=== PATIENT | male | born 1955 | race Caucasian/White ===

== ENCOUNTER → 2017-09-20 | Outpatient (CLI) | payer BC ==
--- NOTE | 2017-09-20 11:02 | XR ---
EXAMINATION TYPE: XR abdomen 1V DATE OF EXAM: 09/20/2017 COMPARISON: NONE HISTORY: 62-year-old male right-sided kidney stones FINDINGS: Lung bases are clear. Supine imaging limited for assessment of free air. Nonobstructive bowel gas pattern. Mild overall stool burden. There is a 5 mm right upper to mid abdominal calcification which is nonspecific. IMPRESSION: Possible 5 mm right renal calculus.
== END | disposition home or self-care (01) ==
LOC: RADXRMAIN 08:20
PROVIDERS: ATTEND Urology
DX: N20.0 Calculus of kidney (principal)
CPT/HCPCS: 74018

== ENCOUNTER → 2018-11-08 | Outpatient (CLI) | payer BC | LOC: LABWHC1 08:56 | PROVIDERS: ATTEND Urology | DX: E29.1 Testicular hypofunction (principal) | CPT/HCPCS: 36415; 84402; 84403 ==

== ENCOUNTER → 2019-04-17 | Outpatient (CLI) | payer BC | END | disposition home or self-care (01) | LOC: LABWHC1 07:48 | PROVIDERS: ATTEND Urology | DX: E29.1 Testicular hypofunction (principal); R35.1 Nocturia | CPT/HCPCS: 36415; 84153; 84402; 84403 ==

== ENCOUNTER → 2020-09-03 | Outpatient (CLI) | payer BC ==
--- NOTE | 2020-09-03 13:00 | CT ---
EXAMINATION TYPE: CT urogram wo/w con DATE OF EXAM: 09/03/2020 COMPARISON: None HISTORY: 65-year-old male R31.0, Hematuria TECHNIQUE: Contiguous axial scanning of the abdomen and pelvis performed without and with IV Contrast , patient injected with 100 mL of Isovue 300. Delayed images through the kidneys and bladder were obt ained. Coronal/sagittal reconstructions performed. 3-D reconstructions generated on a dedicated works tation. CT DLP: 2635.10 mGycm Automated exposure control for dose reduction was used. FINDINGS: Heart normal size without pericardial effusion. Lung bases clear without pleural effusion. No focal liver lesion or biliary ductal dilatation. Portal venous system is patent. Gallbladder, adrenal glands, spleen, and pancreas appear within normal limits. Kidneys show no nephrolithiasis or significant obstructive uropathy. No hydronephrosis. However, ther e does appear to be a 7 mm calcification in the distal right ureter, axial series 5 image 70. No abnormal renal mass. No abnormal filling defect within the renal collecting system. Segments of the distal third ureters remain unopacified but show no abnormal thickening. The remainin g upper and mid ureters appear satisfactory. No dilated small bowel, free fluid, or free air. No mesenteric or retroperitoneal lymphadenopathy. Mild stool burden. Mildly redundant sigmoid colon. No pericolic inflammatory change. Bladder prominently urine distended. Prostate gland is enlarged at 5.4 cm wide. No abnormal fluid col lection the pelvis or pelvic lymphadenopathy. Bones: Mild degenerative change of the hips. Mild degenerative disc disease lower lumbar spine. Facet arthropathy lower lumbar spine. Fatty matrix hemangioma within the T9 and L2 vertebral bodies. Also the L4 vertebral body. IMPRESSION: 1. THERE APPEARS TO BE A 7 MM CALCULUS IN THE DISTAL RIGHT URETER. THIS DOES NOT SEEM TO BE CONTRIBUT ING TO ANY SIGNIFICANT OBSTRUCTIVE UROPATHY. 2. NO SUSPICIOUS RENAL MASS. SEGMENTS OF BOTH DISTAL URETERS REMAIN NONOPACIFIED LIMITING THEIR EVALU ATION BUT SHOW NO KERRY ABNORMAL WALL THICKENING. 3. PROSTATOMEGALY AT 5.4 CM WIDE.
== END ==
LOC: RADCTMAIN 10:28
PROVIDERS: ATTEND Urology
DX: N40.0 Benign prostatic hyperplasia without lower urinary tract symptoms (principal); N20.1 Calculus of ureter
CPT/HCPCS: 74178; 74400; Q9967

== ENCOUNTER → 2020-09-17 | Outpatient (CLI) | payer BC ==
[2020-09-17 11:49] LABS: Calcium 10.7 mg/dL (8.4-10.2)
[2020-09-17 12:05] LABS: Basophils # (A) 0.1 k/uL (0-0.2); Basophils % (A) 1 %; Eosinophils # (A) 0.1 k/uL (0-0.7); Eosinophils % (A) 1 %; HCT 49.6 % (39.0-53.0); HGB 16.8 gm/dL (13.0-17.5); Lymphocytes # (A) 1.5 k/uL (1.0-4.8); Lymphocytes % (A) 25 %; MCH 29.7 pg (25.0-35.0); MCHC 33.8 g/dL (31.0-37.0); MCV 87.7 fL (80.0-100.0); Mean Platelet Volume 8.4; Monocytes # (A) 0.4 k/uL (0-1.0); Monocytes % (A) 6 %; Neutrophils # (A) 3.7 k/uL (1.3-7.7); Neutrophils % (A) 65 %; Platelet Count 230 k/uL (150-450); RBC 5.66 m/uL (4.30-5.90); WBC 5.8 k/uL (3.8-10.6)
== END | disposition home or self-care (01) ==
LOC: LABPAT 10:11
PROVIDERS: ATTEND Urology
DX: Z01.812 Encounter for preprocedural laboratory examination (principal); N20.1 Calculus of ureter
CPT/HCPCS: 36415; 80048; 85025

== ENCOUNTER 2020-09-24 05:55 | Day surgery (SDC) | payer BC ==
[2020-09-22 12:46] VITALS: BMI 30.4
--- NOTE | 2020-09-22 15:24 | P.GSHP ---
History of Present Illness H&P Date: 09/18/20 Chief Complaint: Gross hematuria The patient is a 65-year-old white male with a three-month history of intermittent gross hematuria. Computed tomography scan shows a 7 mm right distal ureteral calculus. He has a history of kidney stones. Alternative treatment options were reviewed, including observation, ureteroscopy with laser lithotripsy, and extracorporal shockwave lithotripsy (ESWL). After weighing the pros and cons of each option, he has elected to undergo ureteroscopy with laser lithotripsy. - Genitourinary (Male) Genitourinary: Reports hematuria, Denies flank pain - Psychiatric Psychiatric: Reports anxiety Medications and Allergies Home Medications Medication Instructions Recorded Confirmed Type Allopurinol [Zyloprim] 200 mg PO DAILY 09/22/20 09/22/20 History Daytrana Patch 30 mg TRANSDERM DAILY 09/22/20 09/22/20 History Esomeprazole Magnesium [NexIUM 20 mg PO DAILY 09/22/20 09/22/20 History 24Hr] FLUoxetine HCL [PROzac] 20 mg PO DAILY 09/22/20 09/22/20 History Fluticasone Nasal [place] [Flonase 2 spr EA NOSTRIL DAILY 09/22/20 09/22/20 History Nasal [place]] Gabapentin [Neurontin] 300 mg PO HS 09/22/20 09/22/20 History Gabapentin [Neurontin] 600 mg PO BID 09/22/20 09/22/20 History Pravastatin Sodium [Pravachol] 20 mg PO DAILY 09/22/20 09/22/20 History Testosterone [Testosterone 1.62% 3 pump TRANSDERM DAILY 09/22/20 09/22/20 History (1250 mg)] Xyrem 4.5 mg PO HS 09/22/20 09/22/20 History buPROPion HCL [Wellbutrin XL] 300 mg PO DAILY 09/22/20 09/22/20 History Allergies Allergy/AdvReac Type Severity Reaction Status Date / Time No Known Allergies Allergy Verified 09/22/20 12:16 Surgical - Exam - General well developed, well nourished, no distress - Respiratory normal respiratory effort, clear to auscultation - Cardiovascular Rhythm: regular Abnormal Heart Sounds: no systolic murmur, no diastolic murmur, no rub, no S3 Gallop, no S4 Gallop, no click, no other - Abdomen Abdomen: soft, non tender, no guarding, no rigid, no rebound - Genitourinary testicles non-tender - Rectum Rectum: normal sphincter tone, no masses - Psychiatric oriented to time, oriented to person, oriented to place, speech is normal, memory intact Results - Imaging CT scan - abdomen: report reviewed, image reviewed Assessment and Plan (1) Calculus of ureter Status: Acute Code(s): N20.1 - CALCULUS OF URETER SNOMED Code(s): 03506739 Plan: Cystoscopy, right ureteroscopy with Holmium laser lithotripsy, possible stone basketing, possible right ureteral stent insertion. The procedure has been reviewed in detail with the patient and his . They have been made aware of potential risks, which include anesthesia, bleeding, infection, inability to successfully remove the calculus, and ureteral injury.
[2020-09-24] MEDS ORDERED: ONDANSETRON 4 MG/2 ML VIAL ONE (06:47)
[2020-09-24] MEDS ORDERED: LACTATED RINGERS 1,000 ML IV ONE ×2 (06:55→08:05)
[2020-09-24] MEDS ORDERED: ONDANSETRON 4 MG/2 ML VIAL IVP ONE (06:56)
[2020-09-24] MEDS ORDERED: MIDAZOLAM 2 MG/2 ML VIAL IVP ONE (06:56)
[2020-09-24] MEDS ORDERED: DEXAMETHASONE SOD PHOSPHATE 4 MG/ML 1 ML VIAL IVP ONE (06:56)
[2020-09-24] MEDS ORDERED: fentaNYL (PF) 50 MCG/ML 2 ML AMP ONE (07:28)
[2020-09-24] MEDS ORDERED: MIDAZOLAM 2 MG/2 ML VIAL ONE (07:28)
[2020-09-24] MEDS ORDERED: PROPOFOL 10 MG/ML 20 ML VIAL IV ONE (07:28)
[2020-09-24] MEDS ORDERED: LIDOCAINE 1% INJ 10MG/ML (20 ML MDV) ONE (07:28)
[2020-09-24] MEDS ORDERED: SUCCINYLCHOLINE CHLORIDE 100 MG/5 ML SYR IV ONE (07:28)
[2020-09-24] MEDS ORDERED: IOPAMIDOL-370 50ML BTL MISCELLANE ONE (08:04)
--- NOTE | 2020-09-24 08:18 | XR ---
EXAMINATION TYPE: XR KUB portable DATE OF EXAM: 09/24/2020 CLINICAL DATA: 65-year-old male preoperative right-sided kidney stones, [facility] COMPARISON: CT 09/03/2020 FINDINGS: Moderate stool in the right-sided the abdomen. Mild degenerative change at both hips. Nonob structive bowel gas pattern. Bowel content partially obscures the renal shadows, particularly on the right. An 8 x 5 mm calcification projects in the right side of the pelvis in keeping with the distal ureteral calculus seen on recent CT. IMPRESSION: 8 x 5 mm distal right ureteral calculus redemonstrated. Moderate stool in the right side of the abdom en.
--- NOTE | 2020-09-24 08:48 | P.OP ---
Date of Procedure: 09/24/20 Preoperative Diagnosis: Right ureteral calculus Postoperative Diagnosis: Same Procedure(s) Performed: Cystoscopy, right retrograde pyelogram, right ureteroscopy with Holmium laser lithotripsy and stone basketing Anesthesia: FLETCHER Surgeon: Maurizio Zamarripa Estimated Blood Loss (ml): 5 IV fluids (ml): 800 Pathology: other (Calculus fragments, sent for chemical analysis) Condition: stable Disposition: PACU Indications for Procedure: The patient is a 65-year-old white male with a three-month history of intermittent gross hematuria. Computed tomography scan shows a 7 mm right distal ureteral calculus. He has a history of kidney stones. Alternative treatment options were reviewed, including observation, ureteroscopy with laser lithotripsy, and extracorporal shockwave lithotripsy (ESWL). After weighing the pros and cons of each option, he has elected to undergo ureteroscopy with laser lithotripsy. Operative Findings: Right distal ureteral calculus, fragmented and removed completely. Description of Procedure: The patient was taken to the operating room and placed in the dorsolithotomy position, with legs supported in Adam stirrups. The external genitalia was prepped and draped sterilely. The 30 lens was used to introduce the 21-[place] Cardoza cystoscopic sheath through the urethra and into the bladder under direct vision. The prostatic urethra showed evidence of visual occlusion with a trilobar configuration. The bladder was examined in its entirety. Both ureteral orifices were normal anatomic location and configuration. No tumors or foreign bodies were seen. Using a 10-[place] cone-tipped catheter, a right retrograde pyelogram was performed. This confirmed the presence of a calculus several centimeters cephalad to the ureterovesical junction. The cystoscope was removed, and the Cardoza semirigid ureteroscope was advanced into the bladder. The right ureteral orifice was cannulated, but the ureteroscope could not be advanced due to narrowing of the intramural ureter. A 0.035 inch Glidewire was passed through the ureteroscope. With some manipulation, the Glidewire was advanced beyond the calculus and up to the right renal pelvis. A 15-[place] balloon dilating catheter was then used to dilate the ureter distal to the calculus. The balloon dilating catheter was removed, and the semirigid ureteroscope was again passed into the bladder under direct vision. The right ureteral orifice was cannulated, and the ureteroscope was easily advanced up to the calculus. The 272 micron Holmium laser probe was passed through the ureteroscope, and lithotripsy was performed utilizing a dusting mode. There were several residual fragments, which were removed using a 1.9-[place] nitinol basket. Inspection of the ureter at this time showed no residual calculi. Mild edema of the distal ureter was noted. There was no evidence of ureteral perforation. The ureteroscope was removed, and the cystoscope was advanced into the bladder. The calculus fragments were removed and sent for chemical analysis. The bladder was emptied and the cystoscope removed. The patient tolerated the procedure well and was taken to the recovery room in stable condition. [facility] [place]: Procedure Acuity: Elective Stone Size and Location: 7 mm, right distal ureter Ureteral Dilation: Balloon Dilation Ureteral Access Sheath Used: No Stone Sent for Analysis: Yes All Stones/Fragments Were Removed with a Basket: Yes Complications: No Preoperative Antibiotics Given: Yes Stent Placed: No Discharge Medications: None
[2020-09-24 08:56] VITALS: TEMP 97.1
--- NOTE | 2020-09-24 09:16 | FL ---
EXAMINATION TYPE: FL urography retrograde DATE OF EXAM: 09/24/2020 FLUOROSCOPY Fluoroscopy time of 1 minute 3 seconds was used during urologic procedure with cystoscopy and lithotr ipsy, stone removal. 3 image/s document/s the procedure.
[2020-09-24 09:50] VITALS: BP 135/79; PULSE 62; RESP 16
== END 2020-09-24 10:37 | disposition home or self-care (01) ==
LOC: OR 05:55
PROVIDERS: ATTEND Urology
DX: N20.1 Calculus of ureter (principal); N13.5 Crossing vessel and stricture of ureter without hydronephrosis; E78.5 Hyperlipidemia, unspecified; G47.33 Obstructive sleep apnea (adult) (pediatric); F41.9 Anxiety disorder, unspecified; F32.9 Major depressive disorder, single episode, unspecified; Z87.442 Personal history of urinary calculi; Z79.899 Other long term (current) drug therapy; Z79.890 Hormone replacement therapy; Z99.89 Dependence on other enabling machines and devices
CPT/HCPCS: 82365; 74420; 74018; 52353; 52341; C1758; C1769; J2250; J1100; J0690; J2405; J2001; J3010; J0330; J2704; Q9967

== ENCOUNTER 2020-09-24 13:18 | Emergency (ER) | payer BC ==
[2020-09-24 13:23] VITALS: RESP 18; TEMP 97.5
[2020-09-24] MEDS ORDERED: SODIUM CHLORIDE 0.9% 1,000 ML IV STA (13:51)
[2020-09-24] MEDS ORDERED: KETOROLAC 15 MG/ML 1 ML VIAL IVP STA (13:51)
[2020-09-24 14:09] LABS: Basophils % (A) 0 %; Eosinophils % (A) 1 %; HCT 43.7 % (39.0-53.0); Lymphocytes # (A) 0.6 k/uL (1.0-4.8); Lymphocytes % (A) 7 %; MCH 29.8 pg (25.0-35.0); MCHC 34.4 g/dL (31.0-37.0); MCV 86.4 fL (80.0-100.0); Mean Platelet Volume 8.6; Monocytes # (A) 0.2 k/uL (0-1.0); Monocytes % (A) 2 %; Neutrophils # (A) 7.9 k/uL (1.3-7.7); Neutrophils % (A) 91 %; Platelet Count 209 k/uL (150-450); RBC 5.06 m/uL (4.30-5.90); RDW 12.8 % (11.5-15.5); WBC 8.7 k/uL (3.8-10.6)
[2020-09-24 14:23] LABS: Albumin 4.2 g/dL (3.5-5.0); Calcium 9.4 mg/dL (8.4-10.2); Potassium 4.7 mmol/L (3.5-5.1); Total Bilirubin 0.7 mg/dL (0.2-1.3); Total Protein 6.4 g/dL (6.3-8.2)
--- NOTE | 2020-09-24 14:26 | ED ---
Abdominal Pain HPI - General Chief Complaint: Abdominal Pain Stated Complaint: abd pain Time Seen by Provider: 09/24/20 13:38 Source: patient, EMS Mode of arrival: EMS Limitations: no limitations - History of Present Illness Initial Comments: Patient is a 65-year-old male presenting to the emergency department via EMS of her complaints of severe right-sided flank and abdominal pain that started a few hours prior to arrival. Patient had lithotripsy performed by Dr. Zamarripa this morning and on his way home from the hospital started having severe right flank pain. He did take 2 Tylenol threes which they had in the vehicle however did not improve. Patient continued to have very severe pains at home so the called EMS. Patient was given a total of 100 g of fentanyl as well as 10 mg of morphine in the EMS prior to arrival. He states his pain is still about a 5/10. He does admit to some mild nausea but no vomiting. He states they did contact Dr. Zamarripa who said that he will have some pain over the next 1-2 days and that they do give him Toradol however they were not able to fill the prescription before his pain worsened. He denies any fevers or chills. There are no further complaints at this time. Upon arrival to the ER his vitals are stable. - Related Data Home Medications Medication Instructions Recorded Confirmed Allopurinol [Zyloprim] 200 mg PO DAILY 09/22/20 09/22/20 Daytrana Patch 30 mg TRANSDERM DAILY 09/22/20 09/22/20 Esomeprazole Magnesium [NexIUM 20 mg PO DAILY 09/22/20 09/22/20 24Hr] FLUoxetine HCL [PROzac] 20 mg PO DAILY 09/22/20 09/22/20 Fluticasone Nasal [place] [Flonase 2 spr EA NOSTRIL DAILY 09/22/20 09/22/20 Nasal [place]] Gabapentin [Neurontin] 300 mg PO HS 09/22/20 09/22/20 Gabapentin [Neurontin] 600 mg PO BID 09/22/20 09/22/20 Pravastatin Sodium [Pravachol] 20 mg PO DAILY 09/22/20 09/22/20 Testosterone [Testosterone 1.62% 3 pump TRANSDERM DAILY 09/22/20 09/22/20 (1250 mg)] Xyrem 4.5 mg PO HS 09/22/20 09/22/20 buPROPion HCL [Wellbutrin XL] 300 mg PO DAILY 09/22/20 09/22/20 Allergies Allergy/AdvReac Type Severity Reaction Status Date / Time No Known Allergies Allergy Verified 09/24/20 06:29 Review of Systems ROS Statement: Those systems with pertinent positive or pertinent negative responses have been documented in the HPI. ROS Other: All systems not noted in ROS Statement are negative. Past Medical History Past Medical History: Sleep Apnea/CPAP/BIPAP Additional Past Medical History / Comment(s): narcolepsy History of Any Multi-Drug Resistant Organisms: None Reported Additional Past Surgical History / Comment(s): lipotrypsy Past Psychological History: Depression Smoking Status: Never smoker Past Alcohol Use History: None Reported Past Drug Use History: None Reported General Exam - General Exam Comments Initial Comments: GENERAL: Patient is well-developed and well-nourished. Patient is nontoxic and in moderate distress. HEAD: Atraumatic, normocephalic. EYES: Pupils equal round and reactive to light, extraocular movements intact, sclera anicteric, conjunctiva are normal. Eyelids were unremarkable. ENT: TMs normal, nares patent, oropharynx clear without exudates. Moist mucous membranes. NECK: Normal range of motion, supple without lymphadenopathy or JVD. LUNGS: Unlabored respirations. Breath sounds clear to auscultation bilaterally and equal. No wheezes rales or rhonchi. HEART: Regular rate and rhythm without murmurs, rubs or gallops. ABDOMEN: Soft, tender in the right side of the abdomen, right flank pain, normoactive bowel sounds. No guarding, no rebound. No masses appreciated. : Deferred MUSCULOSKELETAL: Normal extremities with adequate strength and normal range of motion, no pitting or edema. No clubbing or cyanosis. NEUROLOGICAL: Patient is alert and oriented x 3. Motor and sensory are also intact. Cranial nerves II through XII grossly intact. Symmetrical smile. Normal speech, normal gait. PSYCH: Normal mood, normal affect. SKIN: Warm, Dry, normal turgor, no rashes or lesions noted. Limitations: no limitations Course Vital Signs 09/24/20 09/24/20 13:20 15:37 Temperature 97.5 F L Pulse Rate 76 72 Respiratory 18 18 Rate Blood Pressure 141/95 137/62 O2 Sat by Pulse 98 99 Oximetry Medical Decision Making - Medical Decision Making Patient is a 65-year-old male presenting via EMS for severe pain of the right side of the abdomen, right flank pain after undergoing a lithotripsy this morning with Dr. Zamarripa. Patient received a total of 100 g of fentanyl and 10 mg of morphine the EMS prior to arrival, he continued to have pain 5/10. KUB no longer shows the 8 mm stone in, his labs are unremarkable. Patient was given 30 mg of Toradol here in the ER and his pain has improved immensely. I discussed with patient that he could have continued pain for the next 1-2 days as a smaller stones pass. I recommended continuing his fluids, Zofran for any additional nausea and continue with the Toradol medication that they were prescribed. Patient and patient's are in agreement with this plan of care. He is stable for discharge. Return parameters were discussed with them and they verbalized understanding. Case discussed with Dr. Heard. - Lab Data Result diagrams: 09/24/20 14:01 09/24/20 14:01 Lab Results 09/24/20 09/24/20 09/24/20 Range/Units 14:01 14:01 15:00 WBC 8.7 (3.8-10.6) k/uL RBC 5.06 (4.30-5.90) m/uL Hgb 15.0 (13.0-17.5) gm/dL Hct 43.7 (39.0-53.0) % MCV 86.4 (80.0-100.0) fL MCH 29.8 (25.0-35.0) pg MCHC 34.4 (31.0-37.0) g/dL RDW 12.8 (11.5-15.5) % Plt Count 209 (150-450) k/uL MPV 8.6 Neutrophils % 91 % Lymphocytes % 7 % Monocytes % 2 % Eosinophils % 1 % Basophils % 0 % Neutrophils # 7.9 H (1.3-7.7) k/uL Lymphocytes # 0.6 L (1.0-4.8) k/uL Monocytes # 0.2 (0-1.0) k/uL Eosinophils # 0.0 (0-0.7) k/uL Basophils # 0.0 (0-0.2) k/uL Sodium 139 (137-145) mmol/L Potassium 4.7 (3.5-5.1) mmol/L Chloride 104 (98-107) mmol/L Carbon Dioxide 28 (22-30) mmol/L Anion Gap 7 mmol/L BUN 18 (9-20) mg/dL Creatinine 1.03 (0.66-1.25) mg/dL Est GFR (CKD-EPI)AfAm 89 (>60 ml/min/1.73 sqM) Est GFR (CKD-EPI)NonAf 77 (>60 ml/min/1.73 sqM) Glucose 126 H (74-99) mg/dL Calcium 9.4 (8.4-10.2) mg/dL Total Bilirubin 0.7 (0.2-1.3) mg/dL AST 29 (17-59) U/L ALT 35 (4-49) U/L Alkaline Phosphatase 79 (38-126) U/L Total Protein 6.4 (6.3-8.2) g/dL Albumin 4.2 (3.5-5.0) g/dL Urine Color Yellow Urine Appearance Cloudy (Clear) Urine pH 8.0 (5.0-8.0) Ur Specific [place] 1.009 (1.001-1.035) Urine Protein Trace H (Negative) Urine Glucose (UA) Trace H (Negative) Urine Ketones Negative (Negative) Urine Blood Large H (Negative) Urine Nitrite Negative (Negative) Urine Bilirubin Negative (Negative) Urine Urobilinogen <2.0 (<2.0) mg/dL Ur Leukocyte Esterase Negative (Negative) Urine RBC >182 H (0-5) /hpf Urine WBC 12 H (0-5) /hpf Urine Yeast (Budding) Few H (None) /hpf Disposition Clinical Impression: Calculus of ureter, Right flank pain Disposition: HOME SELF-CARE Condition: Stable Instructions (If sedation given, give patient instructions): Kidney Stones (ED) Additional Instructions: Please return to the Emergency Department if symptoms worsen or any other concerns. Continue with your already prescribed Toradol for pain management. May take Zofran for any additional nausea. Follow up with urology as discussed. Is patient prescribed a controlled substance at d/c from ED?: No Referrals: Ines Philippe MD [Primary Care Provider] - 1-2 days Maurizio Zamarripa MD [STAFF PHYSICIAN] - 1-2 days Time of Disposition: 15:34
--- NOTE | 2020-09-24 14:36 | XR ---
EXAMINATION TYPE: XR KUB DATE OF EXAM: 09/24/2020 Comparison: 09/24/2020, earlier today Clinical History: 65-year-old male recent oh lithotripsy today, increased pain Findings: Lung bases are clear. No evidence for free intraperitoneal air. Nonobstructive bowel gas pattern. Mild stool within the rig ht side of the abdomen. The previously millimeter calcification in the right side of the pelvis is no longer identified. Impression: The previous 8 mm calculus in the right side of the pelvis is no longer visualized.
[2020-09-24 15:14] LABS: Appearance,Urine Cloudy (Clear); Bilirubin,Urine Negative (Negative); Blood,Urine Large (Negative); Budding Yeast,Urine Few /hpf; Color,Urine Yellow; Glucose,Urine (UA) Trace (Negative); Ketones,Urine Negative (Negative); Leukocyte Esterase,Urine Negative (Negative); Nitrite,Urine Negative (Negative); Protein,Urine Trace (Negative); RBC,Urine >182 /hpf (0-5); Specific Gravity,Urine 1.009 (1.001-1.035); Urobilinogen,Urine <2.0 mg/dL (<2.0); WBC,Urine 12 /hpf (0-5)
[2020-09-24] MEDS ORDERED: ONDANSETRON 4 MG ODT STARTER PACK 2 TAB BTL PO STA (15:26)
[2020-09-24 15:39] VITALS: BP 137/62; PULSE 72
== END 2020-09-24 15:37 | disposition home or self-care (01) ==
LOC: EC 13:18
DX: N20.1 Calculus of ureter (principal); G47.30 Sleep apnea, unspecified; F32.9 Major depressive disorder, single episode, unspecified
CPT/HCPCS: 36415; 80053; 85025; 81001; 87086; 74018; 99284; 96374; 96361 ×2; J1885; S0119

== ENCOUNTER → 2020-10-20 | Outpatient (CLI) | payer BC ==
--- NOTE | 2020-10-20 09:51 | US ---
EXAMINATION TYPE: US kidneys/renal and bladder DATE OF EXAM: 10/20/2020 COMPARISON: CT & Xray CLINICAL HISTORY: N20.1 Calulus of ureter. H/O right renal calculus, F/U s status post right calculus removal EXAM MEASUREMENTS: Right Kidney: 10.4 x 5.1 x 5.9 cm Left Kidney: 11.6 x 5.8 x 5.1 cm Right Kidney: Appeared wnl Left Kidney: Appeared wnl Bladder: wnl Bilateral Jets seen: Yes There is no evidence for hydronephrosis at this point in time. No nephrolithiasis is seen. No sobia s are identified. The urinary bladder is anechoic. Bilateral ureteral jets are seen. IMPRESSION: No distinct abnormality seen.
== END | disposition home or self-care (01) ==
LOC: RADUSWWP 09:22
PROVIDERS: ATTEND Urology
DX: N20.1 Calculus of ureter (principal)
CPT/HCPCS: 76770